=== PATIENT | female | born 1965 | race Caucasian/White ===

== ENCOUNTER 2017-11-09 07:42 | Outpatient (CLI) | payer OTHER ==
--- NOTE | 2017-11-09 09:55 | MRI ---
MRI OF LEFT SHOULDER PERFORMED WITHOUT CONTRAST ENHANCEMENT: Date: 11/09/17 HISTORY: Injury approximately a month ago with decreased range of motion. FINDINGS: The AC joint appears fairly unremarkable. There is a low grade undersurface tear involving the infraspinatus tendon and a low grade undersurfac e tear involving the articular fibers of the supraspinatus tendon, more in the mid to posterior porti on of the tendon, near the junction of the supra and infraspinatus tendons. There is a linear extensi on of fluid which extends very close to the outer bursal fibers and probably represents a small inter stitial tear. There is fluid in the subacromial/subdeltoid recess and this could indicate either burs itis or possibly that there is a subtle linear pinhole full thickness component to the tear. The subs capularis muscle and tendon appear intact. Biceps tendon is normal in position in the bicipital groov e. I do not appreciate any definitive labral abnormalities. The inferior glenohumeral ligament is intact . IMPRESSION: Low grade undersurface tear involving the infraspinatus tendon. In addition, there is a low grade und ersurface tear involving the mid to posterior fibers of the supraspinatus tendon. These fibers are re tracted by less than 1.0 cm, but there is a linear fluid density collection which extends to the oute r bursal fibers which could indicate a more significant pinhole component to the tear. The presence o f some fluid in the subacromial/subdeltoid recess could be on the basis of bursitis or could indicate that there is a pinhole full thickness extension of this tear through the outer bursal fibers of the supraspinatus. POS: CHRISTOPHER
== END 2017-11-09 07:43 | disposition home or self-care (01) ==
LOC: TBSIIMAG 07:42
PROVIDERS: ATTEND Family Medicine
DX: S46.912D Strain of unspecified muscle, fascia and tendon at shoulder and upper arm level, left arm, subsequent encounter (principal)

== ENCOUNTER 2018-04-24 13:24 | Outpatient (CLI) | payer OTHER | END 2018-04-24 13:25 | disposition home or self-care (01) | LOC: BICMAMMO 13:24 | PROVIDERS: ATTEND Family Medicine | DX: Z12.31 Encounter for screening mammogram for malignant neoplasm of breast (principal) | CPT/HCPCS: 77063; 77067 ==

== ENCOUNTER 2019-04-09 06:51 | Outpatient (CLI) | payer OTHER ==
--- NOTE | 2019-04-13 13:52 | EKG ---
Test Reason : Blood Pressure : / mmHG Vent. Rate : 071 BPM Atrial Rate : 071 BPM P-R Int : 172 ms QRS Dur : 092 ms QT Int : 370 ms P-R-T Axes : 032 -30 059 degrees QTc Int : 402 ms Normal sinus rhythm Left axis deviation Abnormal ECG Confirmed by VENESSA TOLLIVER ([id number]) on 04/13/2019 1:51:27 PM Referred By: VALDO Confirmed By:VENESSA TOLLIVER
== END 2019-04-09 06:52 | disposition home or self-care (01) ==
LOC: LABBT 06:51
PROVIDERS: ATTEND Obstetrics & Gynecology
DX: Z01.818 Encounter for other preprocedural examination (principal); N81.10 Cystocele, unspecified; N81.6 Rectocele; N81.2 Incomplete uterovaginal prolapse
CPT/HCPCS: 93005; 93010

== ENCOUNTER 2019-04-17 05:40 | Day surgery (SDC) | payer OTHER ==
[2019-04-09 16:41] VITALS: BMI 29.9
--- NOTE | 2019-04-16 20:32 | HP ---
She is set for surgery on 04/17/2019. HISTORY OF PRESENT ILLNESS: Ms. Chung is a 53-year-old white female G4, P2, A2 who is having pelvic prolapse symptoms. She was noting increasing pelvic vaginal bulge sensation with pressure. She is also having to splint the vagina to evacuate her stool. She has no significant genuine stress incontinence issues. She has been doing Kegel exercise for this for the past 3 to 6 months with no improvement in her prolapse symptomatology. She is desiring surgical correction. PAST MEDICAL HISTORY: Hypothyroidism, chronic hypertension, and some osteoarthritis along with generalized anxiety disorder. PAST SURGICAL HISTORY: section, cholecystectomy, and tonsillectomy. CURRENT MEDICATIONS: 1. Levothyroxine 25 mcg tablet daily. 2. Lisinopril 10 mg tablet daily. 3. Mobic 7.5 mg tablet daily as needed. 4. Sertraline 100 mg tablet daily. FAMILY HISTORY: Hypertension in her mother and carcinoma in situ of the prostate in her father. SOCIAL HISTORY: Nonsmoker. No excessive alcohol use. 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 Blood pressure 118/60, pulse 81 and regular, respiratory rate 18, and O2 saturation on room air 97%. HEENT: Within normal limits. CHEST: Clear to auscultation. HEART: Regular rate and rhythm. S1, S2 heart sounds. No murmurs, rubs, or gallops. ABDOMEN: Soft, nontender, and nondistended with no palpable masses. PELVIS: Vulva and vagina had no lesions. She has a grade 2 cystocele and grade 3 rectocele. Uterine prolapse is grade 2. No adnexal masses were appreciated. ASSESSMENT: This is a 53-year-old white female with symptomatic pelvic prolapse including grade 3 cystocele, grade 2 rectocele, and grade 2 uterine prolapse. PLAN: Plan is to proceed with robotic total laparoscopic hysterectomy and bilateral salpingo-oophorectomy with anterior and posterior repair. Risks and benefits of procedure discussed in detail. She is set for surgery on 04/17/2019. Job ID: [id number]
[2019-04-17] MEDS ORDERED: CeleCOXIB 100 MG CAP ONE (06:09)
[2019-04-17] MEDS ORDERED: Gabapentin 300 MG CAP ONE (06:09)
[2019-04-17] MEDS ORDERED: Famotidine/PF 20 mg/2ml Vial ONE (06:09)
[2019-04-17] MEDS ORDERED: Midazolam HCl 2 mg/2 ml Vial ONE ×2 (06:22→06:58)
[2019-04-17] MEDS ORDERED: Fentanyl 100 MCG/2 ML VIAL ONE (06:22)
[2019-04-17] MEDS ORDERED: EPINEPHrine 1 MG/ML AMP ONE (06:34)
[2019-04-17] MEDS ORDERED: Bupivacaine PF 0.5% 30 ML VIAL ONE (06:34)
[2019-04-17 06:40] LABS: #Basophils 0.1 thou/uL (0.0-0.2); #Eosinphils 0.7 thou/uL (0.0-0.7); #Lymphocytes 2.1 thou/uL (1.20-3.40); #Monocytes 0.6 thou/uL (0.11-0.59); #Neutrophils 3.9 thou/uL (1.40-6.50); %Basophils 0.8 % (0.0-1.0); %Eosinophils 9.3 % (0.0-10.0); %Monocytes 8.1 % (0.0-10.0); %Neutrophils 52.9 % (42.0-75.0); Hemoglobin 14.6 g/dL (12.0-16.0); Mean Corpuscular Hemoglobin 31.6 pg (27.0-31.0); Mean Corpuscular Volume 95.7 fL (78.0-98.0); Mean Platelet Volume 7.7 fL (7.4-10.4); Platelet Count 223 thou/uL (130-400); RBC Distribution Width 11.7 % (11.5-14.5); Red Blood Cell (RBC) Count 4.64 mill/uL (4.20-5.40); White Blood Cell (WBC) Count 7.3 thou/uL (4.8-10.8)
[2019-04-17 06:56] LABS: Anion Gap 10 mmol/L (10-20); BUN (Urea Nitrogen) 21 mg/dL (9.8-20.1); Calc. Creatinine Clearance 102 mL/min (70-130); Calcium 9.7 mg/dL (7.8-10.44); Carbon Dioxide 30 mmol/L (22-29); Chloride 108 mmol/L (98-107); Estimated GFR-MDRD 82; Glucose 93 mg/dL (70-105); Potassium 4.4 mmol/L (3.5-5.1); Sodium 144 mmol/L (136-145)
[2019-04-17 07:20] LABS: BHCG - Serum Negative (NEGATIVE); Pregs Control Background? CLEAR/WHITE (CLR/WHITE); Pregs Control Bar Appear? YES (CONTROL BAR)
[2019-04-17] MEDS ORDERED: Lidocaine 1% w/Epinephrine 1:100K 20 ML VIAL ONE (08:27)
[2019-04-17] MEDS ORDERED: Promethazine HCl 25 MG/ML VIAL SLOW IVP PRN (09:06)
[2019-04-17] MEDS ORDERED: Meperidine HCl/PF 25 MG/ML VIAL SLOW IVP PRN (09:06)
[2019-04-17] MEDS ORDERED: Ondansetron HCl/PF 4 MG/2 ML Vial IVP PRN (09:06)
[2019-04-17] MEDS ORDERED: Promethazine HCl 25 MG/ML VIAL IM PRN ×2 (09:06→09:56)
[2019-04-17] MEDS ORDERED: Zolpidem Tartrate 5 MG TAB PO PRN (09:56)
[2019-04-17] MEDS ORDERED: diphenhydrAMINE 25 MG CAP PO PRN (09:56)
[2019-04-17] MEDS ORDERED: Morphine 4 MG/ML VIAL SLOW IVP PRN (09:56)
[2019-04-17] MEDS ORDERED: Simethicone Chewable 80 MG TAB PO PRN (09:56)
[2019-04-17] MEDS ORDERED: Ondansetron PF 4 MG/2 ML Vial ONE (10:23)
[2019-04-17] MEDS ORDERED: Rocuronium Bromide 10 MG/ML (10ML VIAL) ONE (10:23)
[2019-04-17] MEDS ORDERED: Ketorolac Tromethamine 30 MG/ML VIAL ONE (10:23)
[2019-04-17] MEDS ORDERED: Lidocaine 1% PF 5 ML VIAL ONE (10:23)
[2019-04-17] MEDS ORDERED: PROPOFOL 200 MG/20 ML VIAL ONE (10:23)
[2019-04-17] MEDS ORDERED: PHENYLEPHRINE-NS 100 MCG/ML 10 ML SYRINGE ONE (10:23)
[2019-04-17] MEDS ORDERED: Glycopyrrolate 0.2 MG/ML 5 ML SYRINGE ONE (10:23)
[2019-04-17] MEDS ORDERED: Dexamethasone 20 MG/5 ML VIAL ONE (10:23)
--- NOTE | 2019-04-17 11:56 | OP ---
DATE OF PROCEDURE: 04/17/2019 PREOPERATIVE DIAGNOSES: Symptomatic grade 2 uterine prolapse, grade 2 cystocele, and grade 3 rectocele. POSTOPERATIVE DIAGNOSES: Symptomatic grade 2 uterine prolapse, grade 2 cystocele, and grade 3 rectocele. PROCEDURE PERFORMED: Robotic total laparoscopic hysterectomy with bilateral salpingo-oophorectomy with anterior and posterior repair. SPA TECHNICIAN SURGEON: Lidia Paiz PA-C ESTIMATED BLOOD LOSS: Less than 50 mL. COMPLICATIONS: None. COUNTS: Correct x2. ANTIBIOTICS: 2 g Ancef on-call to OR. PATHOLOGY: Uterus, cervix, bilateral fallopian tubes, and ovaries. COMPLICATIONS: None. COUNTS: Correct x2. FINDINGS: 1. Normal postmenopausal appearing uterus, tubes, and ovaries. 2. Clear urine present in Mendoza catheter postprocedure and bladder was watertight to distention greater than 300 mL intraoperatively postprocedure. 3. Bilateral ureteral peristalsis visualized postprocedure. DISPOSITION: Recovery room, stable. DESCRIPTION OF PROCEDURE: The patient previously received informed consent in regard to surgery. She was placed in dorsal lithotomy position with use of Nino stirrups. She was prepped and draped in usual sterile fashion. Mendoza catheter was placed at this time. A side-arm speculum was placed in the vagina. Anterior lip of the cervix grasped with single-tooth tenaculum. Uterus sounded to 7 cm. A size 6 cm ELIZABETH uterine manipulator was placed along with 3.5 cm cervical cup. Tenaculum and speculum were removed. Attention was then turned to the abdomen, where perspective trocar sites were infiltrated with 0.5% Marcaine with epinephrine. A 12-mm supraumbilical incision was made. Veress needle was entered into the peritoneal cavity and the patient's pressure was noted to be less than 5 mmHg. Abdomen was insufflated with the patient's pressure of 15. Approximately 5 L of carbon dioxide gas was placed. The Veress needle was removed. A 12-mm trocar was placed. Laparoscope was introduced through the trocar sleeve confirming proper entry. Additional bilateral lower quadrant 8 mm trocars were placed under laparoscopic guidance along with the right upper quadrant 11-mm prosthetic assistant port. The robot was docked in usual fashion. I then broke scrub and proceeded to operate from the operative console while my assistants remained at the bedside. The uterus was elevated from the abdomen by my prosthetic assistant. The right fallopian tube was grasped by my prosthetic assistant and IP ligament was coagulated and transected with Bovie cautery and monopolar scissors. This serial coagulation of the broad ligament hugging close to uterus was carried out to the left round ligament was reached. It was coagulated and transected. The anterior leaf of the broad ligament was entered and the vesicouterine peritoneum was then incised in layering technique past the old uterine scar from the previous section. Intermittent distention of the bladder by my prosthetic assistant with sterile saline confirmed the position of the bladder to avoid injury during the dissection. The bladder remained watertight throughout. The uterine vessels were skeletonized on the left side and coagulated in the internal cervical os region. This was carried out on the left side of the uterus with a left fallopian tube being grasped and the IP ligament coagulated, transected, and serial coagulation of the broad ligament hugging close to the right round ligament, which was also coagulated and transected. Again, the anterior leaf of the broad ligament was entered developing the bladder flap in usual fashion and both sharp and blunt dissection. The uterine vessels were skeletonized at the right internal cervical os region. The cervix was further cleared off the bladder atraumatically and the bladder was passed the cervical vaginal margin. The anterior colpotomy was then made from 12 to 3 and 12 to 9 o'clock position and the posterior colpotomy was completed from 6 o'clock to 9 o'clock and 6 o'clock to 3 o'clock. The uterine specimen was then brought into the vaginal vault. Monopolar scissors was switched out for a naomi needle professional driver. The vaginal cuff was coagulated of any oozing vessel of bleeding areas with bipolar fenestrated cautery securing hemostasis. The pelvis irrigated and suctioned. All pedicle sites were confirmed to be hemostatic. Bilateral ureteral peristalsis was visualized postprocedure. We then did undock the robot. The trocar sleeves were removed. A deep stitch of 0 Vicryl was placed in the fascial defect of the umbilicus and the other trocar sites were closed with 4-0 Monocryl and Dermabond. We then proceeded to the vaginal portion of the surgery, where the patient's legs were position for vaginal surgery. A Mendoza catheter bag was placed draining clear urine. A weighted speculum was placed in the vagina. The anterior lip of the vaginal cuff was grasped with an Allis clamp. The posterior vaginal cuff was grasped at 6 o'clock and a suture was placed for tagging this with 0 Vicryl suture. Then, the angles of the vaginal cuff at 3 and 9 o'clock were also grasped with Allis clamps and a pylabd-lo-viqhl stitch of 0 Vicryl was placed and these were tagged. I then grasped the anterior vaginal mucosa of the anterior vaginal cuff on each angle and the anterior vaginal mucosa was infiltrated with 1% lidocaine with epinephrine. A midline incision with Metzenbaum scissors was carried up to 1.5 cm from the urethral meatus. The edges of the vaginal mucosa were grasped with Allis clamps while I dissected the cystocele both sharply and bluntly with assistance in retraction by my assistants. Once the cystocele was reduced, the endopelvic fascia was plicated with 2-0 Vicryl suture with the mattress sutures reducing and repairing the cystocele. The anterior vaginal mucosa was then closed with interrupted affxoa-uz-lhowy stitches of 2-0 Vicryl securing hemostasis with incorporation of some of the endopelvic fascia to rid the space. Once this was accomplished, the vaginal cuff was then closed transversely with interrupted hrjtxi-no-kjxbs 0 Vicryl sutures beginning at the 9 o'clock angle and then working towards the 3 o'clock angle, closing the cuff intact. Hemostasis was confirmed. The weighted speculum had then been removed and the rectocele repair ensued. The vaginal introitus at 4 and 9 o'clock position was grasped with Allis clamps. The posterior vaginal mucosa was infiltrated with 1% lidocaine with epinephrine up to the vaginal cuff line. A midline incision in the posterior vaginal mucosa was carried up the vaginal cuff line with Metzenbaum scissors and the edges of the mucosa had been grasped for retraction with Allis clamps by my assistants. The rectocele was then dissected sharply and bluntly and then we plicated the endopelvic fascia starting most proximally at the vaginal cuff margin with 2-0 Vicryl sutures, reincorporating and plicating the endopelvic fascia, reducing the rectocele defect with numerous 2-0 Vicryl tdizea-vm-noggi sutures. This was carried out working its way towards the vaginal introitus opening. Once the rectocele had been repaired, the excess vaginal mucosa of the posterior margin was excised and then the posterior vaginal mucosa was closed with interrupted qeccuh-ha-elbtp stitches, incorporating some of the space starting proximally and then working more towards the vaginal introital opening. Hemostasis was confirmed. The rectal exam was performed confirming no inadvertent stitch placement in the rectal mucosa. A moistened Kerlix packing was placed vaginally and then the patient was awakened from anesthesia, transferred to recovery room in stable condition. Job ID: [id number]
[2019-04-17] MEDS: Acetaminophen 1,000 MG in Premix Bag 1 BAG IVPB SCH ×2 (12:21→18:00)
[2019-04-17] MEDS: Ketorolac Tromethamine 30 MG/ML VIAL IVP SCH ×3 (12:22→23:36)
[2019-04-17] MEDS: Sodium Chloride 0.9% 1,000 ML IV SCH ×2 (12:28→19:35)
[2019-04-17] MEDS: HYDROcodone/Acetaminophen 5/325 mg Tablet PO PRN ×3 (14:41→23:35)
[2019-04-17] MEDS: Docusate 100 MG CAP PO SCH (20:50)
[2019-04-18] MEDS: HYDROcodone/Acetaminophen 5/325 mg Tablet PO PRN ×4 (03:43→21:22)
[2019-04-18 05:53] LABS: Hemoglobin 12.2 g/dL (12.0-16.0); Mean Corpuscular Hemoglobin 30.6 pg (27.0-31.0); Mean Corpuscular Volume 95.6 fL (78.0-98.0); Mean Platelet Volume 7.9 fL (7.4-10.4); Platelet Count 199 thou/uL (130-400); RBC Distribution Width 11.6 % (11.5-14.5); Red Blood Cell (RBC) Count 3.98 mill/uL (4.20-5.40); White Blood Cell (WBC) Count 10.5 thou/uL (4.8-10.8)
[2019-04-18] MEDS: Ibuprofen 800 MG TAB PO SCH ×3 (06:47→21:22)
[2019-04-18] MEDS: Sodium Chloride 0.9% 1,000 ML IV SCH ×2 (06:47→12:17)
--- NOTE | 2019-04-18 06:55 | PDOC.EVN ---
Event Note - Event Note Event Note: Tolerating diet. Had elevated PVR post op 6 hours of 600ml+-crow reinserted. O:AFVSS HCT 38 ABD:soft/non distended. Trochar sites C/D/I. A/P post op fro robotic tlh/bso with A&P repair. Restart voiding trial. Plan for discharge later today.
[2019-04-18] MEDS: Docusate 100 MG CAP PO SCH ×2 (08:16→20:02)
--- NOTE | 2019-04-18 16:35 | PDOC.EVN ---
Event Note - Event Note Event Note: Nursing called and stated pt is having increased pain, unrelieved with 2 norco tabs given approx 1.5hr ago and is having trouble voiding. Yesterday had urinary retention and crow was replaced. Pt has had 350cc out over course of 6 hours. Bladder scan showed 250cc currently. Will reinsert crow, allow bladder to rest and redo voiding trial in am. Morphine prn severe pain.
[2019-04-19] MEDS: Ondansetron PF 4 MG/2 ML Vial IVP PRN ×2 (02:43→09:06)
[2019-04-19] MEDS: Ibuprofen 800 MG TAB PO SCH ×2 (05:16→14:00)
--- NOTE | 2019-04-19 07:39 | PDOC.EVN ---
Event Note - Event Note Event Note: POD2 S: Pain improved after reinserting catheter, has not required any IV pain meds since. Felisha po, ambulating. +flatus O: VSSAF, UOP 2L overnight NAD unlabored breathing soft/nt/nd/inc c/d/i No e/c/c A) POD2 s/p RATLH BSO USLS A&P repair cysto with postop urinary retention P) VT this am, DC crow, bladder scan for PVR, must be <=30% of total void. If unable to empty adequately can use bethancechol and retry voiding trial. DC home after VT.
[2019-04-19] MEDS: HYDROcodone/Acetaminophen 5/325 mg Tablet PO PRN ×3 (09:05→17:33)
[2019-04-19] MEDS: Docusate 100 MG CAP PO SCH (09:06)
--- NOTE | 2019-04-19 13:23 | PDOC.EVN ---
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 Plan by other MD was for DC today with indwelling crow if voiding trial failed. The patient's nurse just called stating voiding trial not successful as patient still feels need to urinated after void with "bladder discomfort". Scan reviewed with the RN. We will plan on DC homw with short term crow (leg bag) with recheck TuesdayApr 23 as per original plan by primary surgeon.
[2019-04-19 16:50] VITALS: BP 106/69; TEMP 98.2
== END 2019-04-19 17:45 | disposition home or self-care (01) ==
LOC: SDC 05:40 → SURG B 09:55 → SDC 04-19 17:45
PROVIDERS: ATTEND Obstetrics & Gynecology
PROC: 0JQC0ZZ Repair Pelvic Region Subcutaneous Tissue and Fascia, Open Approach (ICD-10-PCS; principal; 2019-04-17)
PROC: 0UT74ZZ Resection of Bilateral Fallopian Tubes, Percutaneous Endoscopic Approach (ICD-10-PCS; principal; 2019-04-17)
PROC: 0UT94ZZ Resection of Uterus, Percutaneous Endoscopic Approach (ICD-10-PCS; principal; 2019-04-17)
PROC: 0UT24ZZ Resection of Bilateral Ovaries, Percutaneous Endoscopic Approach (ICD-10-PCS; principal; 2019-04-17)
DX: N81.2 Incomplete uterovaginal prolapse (principal); N72 Inflammatory disease of cervix uteri; D25.9 Leiomyoma of uterus, unspecified; N80.0 Endometriosis of uterus; E03.9 Hypothyroidism, unspecified; I10 Essential (primary) hypertension; M19.90 Unspecified osteoarthritis, unspecified site; F41.1 Generalized anxiety disorder; R33.9 Retention of urine, unspecified; Z79.899 Other long term (current) drug therapy
CPT/HCPCS: 36415; 80048; 84703; 85025; 85027; 86850; 86900; 86901; 88307; J0131; J0171; J0690; J1100; J1885; J2001; J2250; J2270; J2405; J2704; J3010; S0020; S0028

== ENCOUNTER 2019-11-09 11:34 | Observation (INO) | payer OTHER ==
[2019-11-09] MEDS ORDERED: HYDROcodone/Acetaminophen 5/325 mg Tablet ONE (12:13)
[2019-11-09] MEDS ORDERED: Promethazine HCl 25 MG/ML VIAL IM PRN ×2 (15:26)
[2019-11-09] MEDS ORDERED: Ondansetron ODT 4 MG TAB PO PRN (15:26)
[2019-11-09] MEDS ORDERED: Cyclobenzaprine 10 MG TAB PO PRN (15:26)
[2019-11-09] MEDS ORDERED: hydrALAZINE 20 MG/ML VIAL SLOW IVP PRN (15:26)
[2019-11-09] MEDS ORDERED: Dextrose 5% in Water 1,000 ML IV PRN (15:26)
[2019-11-09] MEDS ORDERED: Ondansetron PF 4 MG/2 ML Vial IVP PRN (15:26)
[2019-11-09] MEDS ORDERED: Dextrose 50% Abboject 50 ML SYRINGE SLOW IVP PRN (15:26)
--- NOTE | 2019-11-09 15:39 | HP ---
REQUESTING PHYSICIAN: Dr. Rivera. ATTENDING SURGEON: Dr. Bullock. CONSULTATIONS: Neurosurgery, Dr. Cardenas. HISTORY OF PRESENT ILLNESS: The patient is a 54-year-old woman who was sent here from [facility] after she sustained a ground level fall resulting in a small subarachnoid hemorrhage. 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 She had a friend drive her to the hospital at [place], where she underwent evaluation and examination and was noted to have that intraparenchymal hemorrhage. The patient was allowed to come by POV to our facility, where we were asked to evaluate her for admission and obtain Neurosurgical consultation. The patient denies loss of consciousness, but was "dazed" for a few minutes. ALLERGIES: NONE. CURRENT MEDICATIONS: 1. Levothyroxine. 2. Lisinopril. 3. Zoloft. PAST MEDICAL HISTORY: Irritable bowel syndrome, hypertension, anxiety, depression. PAST SURGICAL HISTORY: Cholecystectomy, , tonsillectomy. 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 She denies drug, tobacco, or alcohol use. REVIEW OF SYSTEMS: A 10-point review of systems is negative as otherwise stated. PHYSICAL EXAMINATION: VITAL SIGNS: Blood pressure 124/78, heart rate 66, respirations 13, oxygen saturation 98%, and temperature is 98.1. GENERAL: The patient is resting comfortably in bed. She is awake, alert, and oriented x3. [place] Coma Scale is 15. NEUROLOGIC: Nonfocal. This exam was done in conjunction with Dr. Ronald Santillan's neurosurgical PA. HEENT: Unremarkable. The patient has no external signs of trauma. NECK: Nontender. Trachea is midline. No JVD. CHEST: Clear to auscultation with good inspiratory and expiratory effort. HEART: Regular rate and rhythm. ABDOMEN: Soft, flat, nontender with active bowel sounds. EXTREMITIES: Neurovascularly intact x4. BACK: Atraumatic and nontender. LABORATORY FINDINGS: White blood cell count 7.7, hemoglobin 15.3, hematocrit 48.5, and platelets 226. Sodium 139, potassium 4.2, chloride 107, CO2 of 20, BUN 17, creatinine 0.68, glucose 94. LFTs are unremarkable. INR 1.0. RADIOGRAPHIC EXAMINATION: CT of the brain without contrast shows a tiny parenchymal bleed in the right frontal lobe. AP chest shows no acute findings. ASSESSMENT: 1. Status post ground level fall. 2. Small intraparenchymal right frontal lobe . 3. Acute pain secondary to above. PLAN: Plan will be to admit the patient to the surgical floor. She will have frequent neuro checks, pulmonary toilet, gastritis and mechanical VTE prophylaxis. We will repeat the head CT in the morning, sooner as needed. The evaluation, examination, laboratory, and radiographic findings will be discussed with Dr. Bullock after this dictation. Job ID: [id number]
[2019-11-09 16:30] VITALS: BMI 31.1
[2019-11-09] MEDS ORDERED: Scopolamine 1.5 mg/72 hour Patch TD SCH (17:00)
[2019-11-09] MEDS: Acetaminophen 500 MG TAB PO SCH ×2 (17:33→23:16)
[2019-11-09] MEDS: traMADol HCl 50 MG TAB PO PRN (17:33)
--- NOTE | 2019-11-09 20:25 | CON ---
DATE OF CONSULTATION: 11/09/2019 HISTORY OF PRESENT ILLNESS: The patient is a 54-year-old female, who was brought to [facility] following a mechanical fall, hitting the back of her head. The patient reports that she tripped over the dog, landing backwards, knocking a hole in the wall with the posterior aspect of her head. Denies any LOC. Complaining of some headache and nausea. She was evaluated with a noncontrast CT head at [facility], was found to have a very small right-sided frontal traumatic subarachnoid hemorrhage. The patient was transferred to [facility] for further management and neurosurgical consultation. I evaluated the patient at the bedside. She has a GCS 15, was nonfocal in her neurologic exam. PAST MEDICAL HISTORY: IBS, thyroid disease, hypertension, and anxiety. PAST SURGICAL HISTORY: Cholecystectomy, section, and tonsillectomy. SOCIAL HISTORY: She does not smoke, drink, or use any drugs. She lives at home with her family. 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 ALLERGIES: SHE HAS NO KNOWN DRUG ALLERGIES. CURRENT MEDICATIONS LIST: 1. Levothyroxine 25 mcg daily. 2. Lisinopril 10 mg daily. 3. Zoloft 100 mg daily. 4. She denies any anticoagulant or antiplatelet use. PHYSICAL EXAMINATION: VITAL SIGNS: Stable. CONSTITUTIONAL: GCS 15. No acute distress. HEENT: Head, no obvious hematoma, abrasions, or lacerations. Eyes, PERRLA. Extraocular movements intact. ENT, pink, intact, and moist. She has normal voice. NECK: Nontender. Free active range of motion. No meningismus or nuchal rigidity. CARDIAC: Regular rate and rhythm. PULMONARY: Symmetric chest expansion. No evidence of dyspnea. MUSCULOSKELETAL: No deformities or obvious trauma. Free active range of motion. No focal motor weakness or reflex asymmetry. NEUROLOGIC: A and O x4. No focal neurologic deficits are appreciated. ASSESSMENT AND PLAN: This is a 54-year-old female, status post mechanical fall with a small right frontal traumatic subarachnoid hemorrhage. We will plan to monitor closely on the floor with frequent neuro checks and repeat an a.m. noncontrast head CT. She should not be given any anticoagulant or anti-platelet drugs. I have discussed this plan with Dr. Cardenas and he will also see the patient following repeat CT in the morning. Job ID: [id number] [facility]
[2019-11-10] MEDS ORDERED: Morphine 2 MG/ML VIAL SLOW IVP PRN (00:29)
--- NOTE | 2019-11-10 01:00 | PRG ---
DATE OF SERVICE: 11/09/2019 SUBJECTIVE: Ms. Chung is a 54-year-old female, status post ground level fall. She sustained small intraparenchymal right frontal lobe hemorrhage, which is neurologically intact. The patient has been admitted for followup overnight. We will repeat CT scan tomorrow. The patient voiced no concern. OBJECTIVE: VITAL SIGNS: Her vital signs are stable. Her urine is adequate. Currently, the patient is lying in bed comfortable with no acute respiratory distress. VITAL SIGNS: Stable. LUNGS: Clear bilaterally. HEART: Regular rate and rhythm. ABDOMEN: Soft, nondistended. EXTREMITIES: Neurovascularly intact x4. NEUROLOGIC: No focal neurology deficits. ASSESSMENT: 1. Status post ground level fall. 2. Left frontal lobe parenchymal hemorrhage with no neurological deficits. PLAN: Plan will be continue supportive care. Continue pain control. Continue nonpharmacological DVT prophylaxis. We will repeat CT scan tomorrow. Continue gastritis prophylaxis and pulmonary toilet. Job ID: [id number]
[2019-11-10] MEDS ORDERED: Levothyroxine Sodium 25 MCG TAB PO SCH (06:00)
[2019-11-10] MEDS: Acetaminophen 500 MG TAB PO SCH ×2 (06:20→11:30)
--- NOTE | 2019-11-10 08:18 | CT ---
CT OF THE BRAIN WITHOUT CONTRAST: INDICATION: Followup intraparenchymal contusion. COMPARISON: Prior exam dated 11/09/2019 at 9:45 a.m. from [facility]. FINDINGS: The intraparenchymal contusion involving the anterior right frontal lobe is slightly smaller measurin g 7.5 mm, previously measuring 8.5 mm. Generalized cerebral and cerebellar atrophy is similar-appear ing. No midline shift is noted. No hydrocephalus is present. Pansinusitis is similar-appearing. M astoid air cells are clear. IMPRESSION: Slight decrease in size of the right frontal lobe parenchymal contusion. Otherwise, stable exam. POS: BH
[2019-11-10] MEDS: traMADol HCl 50 MG TAB PO PRN (08:40)
[2019-11-10] MEDS ORDERED: Lisinopril 10 MG TAB PO SCH (09:00)
[2019-11-10] MEDS ORDERED: Cholecalciferol 1,000 UNITS (25 MCG) TAB PO SCH (09:00)
[2019-11-10] MEDS ORDERED: Gabapentin 300 MG CAP PO SCH (09:00)
[2019-11-10] MEDS ORDERED: Fish Oil 1,000 MG CAP PO SCH (09:00)
--- NOTE | 2019-11-10 10:42 | PRG ---
DATE OF SERVICE: 11/09/2019 SUBJECTIVE: The patient was seen and examined. I agree with Claudia Segal's evaluation on 11/08/2019. The patient is a 54-year-old woman with a head injury yesterday. She currently is complaining of mild headache and otherwise neurologically intact. The patient's head CT reveals a tiny punctate, right frontal contusion, which is stable to improve on followup. IMPRESSION AND PLAN: The patient can be safely mobilized at discharge. I will arrange a 4-week followup with a head CT to need to be off work for at least one week. Job ID: [id number]
[2019-11-10 11:31] VITALS: BP 114/78; TEMP 98.1
== END 2019-11-10 13:50 | disposition home or self-care (01) ==
LOC: ERS 11:34 → SURG A 15:27
PROVIDERS: ADMIT Surgery; ATTEND Surgery
DX: S06.6X0A Traumatic subarachnoid hemorrhage without loss of consciousness, initial encounter (principal); G89.11 Acute pain due to trauma; I10 Essential (primary) hypertension; F41.9 Anxiety disorder, unspecified; F32.9 Major depressive disorder, single episode, unspecified; E07.9 Disorder of thyroid, unspecified; Z79.899 Other long term (current) drug therapy; W01.198A Fall on same level from slipping, tripping and stumbling with subsequent striking against other object, initial encounter
CPT/HCPCS: 70450; 94760; G0378; G0390

== ENCOUNTER 2020-01-10 09:32 | Outpatient (CLI) | payer OTHER ==
--- NOTE | 2020-01-10 11:37 | MMO ---
Bilateral MAMMO Bilat Screen [facility]. CLINICAL HISTORY: Patient is 54 years old and is seen for screening. The patient has no family history of breast cancer. The patient has no personal history of cancer. VIEWS: The views performed were: bilateral craniocaudal with tomosynthesis and bilateral mediolateral oblique with tomosynthesis. FILMS COMPARED: The present examination has been compared to a prior imaging study performed at [facility] on 04/24/2018. This study has been interpreted with the assistance of computer-aided detection. MAMMOGRAM FINDINGS: There are scattered fibroglandular densities. Finding 1: Right outer breast nodule appears larger measuring 13 mm. Finding 2: Benign calcifications are noted bilaterally. Right biopsy clip. IMPRESSION: FINDING 1: FINDING IN THE RIGHT BREAST REQUIRES ADDITIONAL EVALUATION. AN ULTRASOUND EXAM IS RECOMMENDED. FINDING 2: FINDINGS IN BOTH BREASTS ARE BENIGN. THE RESULTS OF THIS EXAM WERE SENT TO THE PATIENT. ACR BI-RADS Category 0 - Incomplete: Need additional imaging evaluation. [facility] will notify the patient of the need for additional imaging services. MAMMOGRAPHY NOTE: 1. A negative mammogram report should not delay a biopsy if a dominant of clinically suspicious mass is present. 2. Approximately 10% to 15% of breast cancers are not detected by mammography. 3. Adenosis and dense breasts may obscure an underlying neoplasm. Reported by: EMILE DIOP MD Electonically Signed: [id number]
== END 2020-01-10 09:33 | disposition home or self-care (01) ==
LOC: BICMAMMO 09:32
PROVIDERS: ATTEND Family Medicine
DX: Z12.31 Encounter for screening mammogram for malignant neoplasm of breast (principal); N63.10 Unspecified lump in the right breast, unspecified quadrant; R92.1 Mammographic calcification found on diagnostic imaging of breast
CPT/HCPCS: 77063; 77067

== ENCOUNTER 2020-01-15 08:42 | Outpatient (CLI) | payer OTHER ==
--- NOTE | 2020-01-15 11:58 | ULT ---
RIGHT BREAST ULTRASOUND: COMPARISON: Mammograms 01/10/2020, 04/24/2018, 04/09/2008. TECHNIQUE: Multiplanar, jones scale, and color Doppler images were obtained in a right breast ultrasound. FINDINGS: At the 9 o'clock position of the right breast approximately 7 cm from the nipple, there are 2 separat e lesions identified. One of these lesions measures 1.2 cm in greatest dimension and has a hyperecho ic center without significant shadowing. This lesion likely corresponds to a lesion within the adjac ent biopsy clip seen on mammography that has been stable since 2007. The deeper lesion at the 9 o'cl ock position is anechoic and well circumscribed and measures 1.3 cm in greatest dimension and likely represents a cyst. No suspicious shadowing is seen in this location. IMPRESSION: BIRADS category 2 - benign findings. Annual screening mammography is recommended. POS: OFF
== END 2020-01-15 08:43 | disposition home or self-care (01) ==
LOC: BICULT 08:42
PROVIDERS: ATTEND Family Medicine
DX: N63.10 Unspecified lump in the right breast, unspecified quadrant (principal)

== ENCOUNTER 2021-12-24 08:12 | Outpatient (CLI) | payer BC | END 2021-12-24 08:13 | disposition home or self-care (01) | LOC: BICMAMMO 08:12 | PROVIDERS: ATTEND Family Medicine | DX: Z12.31 Encounter for screening mammogram for malignant neoplasm of breast (principal); Z91.89 Other specified personal risk factors, not elsewhere classified | CPT/HCPCS: 77063; 77067 ==